=== PATIENT | female | born 1935 | race Caucasian/White ===

== ENCOUNTER 2018-10-29 13:37 | Emergency (ER) | payer MEDICARE, MEDICAID ==
[2018-10-29 14:04] LABS: #Basophils 0.1 thou/uL (0.0-0.2); #Eosinphils 0.6 thou/uL (0.0-0.7); #Lymphocytes 1.7 thou/uL (1.20-3.40); #Monocytes 0.8 thou/uL (0.11-0.59); #Neutrophils 6.6 thou/uL (1.40-6.50); %Basophils 0.8 % (0.0-1.0); %Eosinophils 6.5 % (0.0-10.0); %Lymphocytes 17.1 % (21.0-51.0); %Monocytes 8.6 % (0.0-10.0); Mean Corpuscular HGB CONC 32.7 g/dL (32.0-36.0); Mean Corpuscular Hemoglobin 32.5 pg (27.0-31.0); Mean Corpuscular Volume 99.3 fL (78.0-98.0); Platelet Count 271 thou/uL (130-400); Red Blood Cell (RBC) Count 4.01 mill/uL (4.20-5.40); White Blood Cell (WBC) Count 9.8 thou/uL (4.8-10.8)
--- NOTE | 2018-10-29 14:07 | RAD ---
CHEST 1 VIEW: Date: 10/29/18 HISTORY: Cough. Fever. COMPARISON: 10/21/16. FINDINGS: Atherosclerosis of aorta. Normal cardiac silhouette. Pulmonary vessels and hilum are normal. Costophr enic angles are clear. Hyperinflation, without consolidation or mass. No pneumothorax or osseous abno rmalities. IMPRESSION: No acute cardiopulmonary process. POS: [facility]
[2018-10-29 14:25] LABS: ALT (SGPT) 15 U/L (8-55); AST (SGOT) 20 U/L (5-34); Albumin 3.7 g/dL (3.4-4.8); Alkaline Phosphatase 113 U/L (40-150); Anion Gap 14 mmol/L (10-20); BUN (Urea Nitrogen) 12 mg/dL (9.8-20.1); Bilirubin, Total 0.2 mg/dL (0.2-1.2); Calc. Creatinine Clearance 0 mL/min (70-130); Calcium 9.1 mg/dL (7.8-10.44); Carbon Dioxide 27 mmol/L (23-31); Chloride 104 mmol/L (98-107); Estimated GFR-MDRD 61; Glucose 105 mg/dL (83-110); Potassium 4.5 mmol/L (3.5-5.1); Protein, Total 6.7 g/dL (6.0-8.3); Sodium 140 mmol/L (136-145)
--- NOTE | 2018-10-31 18:13 | EKG ---
Test Reason : Blood Pressure : / mmHG Vent. Rate : 084 BPM Atrial Rate : 084 BPM P-R Int : 152 ms QRS Dur : 082 ms QT Int : 364 ms P-R-T Axes : 047 113 071 degrees QTc Int : 430 ms Sinus rhythm with sinus arrhythmia with occasional Premature ventricular complexes Right axis deviation Pulmonary disease pattern Abnormal ECG Confirmed by TESSIE CULVER DO ([id number]), commercial production editor BEATRIZ ZAVALETA ([id number]) on 10/31/2018 6:12:48 PM Referred By: Confirmed By:TESSIE CULVER DO
== END 2018-10-29 17:22 | disposition home or self-care (01) ==
LOC: ERS 13:37
DX: J44.9 Chronic obstructive pulmonary disease, unspecified (principal); J20.9 Acute bronchitis, unspecified; I48.91 Unspecified atrial fibrillation; Z87.891 Personal history of nicotine dependence
CPT/HCPCS: 36415; 71045; 80053; 83605; 84484; 85025; 87040; 87804; 93005; 94640; J7620

== ENCOUNTER 2019-03-15 09:29 | Outpatient (CLI) | payer MEDICARE, MEDICAID ==
--- NOTE | 2019-03-15 10:17 | BD ---
EXAM: Bone densitometry using DEXA HISTORY: 83 yo female. Screening for postmenopausal osteoporosis FINDINGS: L1--bone mineral density 0.838 g/sq cm; T score -1.4 ; Z score 1.1 L2--bone mineral density 1.046 g/sq cm; T score 0.2 ; Z score 2.9 L3--bone mineral density 1.074 g/sq cm; T score -0.1 ; Z score 2.8 L4--bone mineral density 1.097 g/sq cm; T score 0.3 ; Z score 3.3 Total L1-L4--bone mineral density 1.018 g/sq cm; T score -0.3 ; Z score 2.6 Left femoral neck--bone mineral density0.555; T score -2.6 ; Z score -0.2 Total proximal left femur--bone mineral density 0.646; T score -2.4 ; Z score -0.2 IMPRESSION: Osteoporosis
== END 2019-03-15 09:30 | disposition home or self-care (01) ==
LOC: BICMAMMO 09:29
PROVIDERS: ATTEND Student in an Organized Health Care Education/Training Program
DX: Z13.820 Encounter for screening for osteoporosis (principal); J44.9 Chronic obstructive pulmonary disease, unspecified; M81.0 Age-related osteoporosis without current pathological fracture
CPT/HCPCS: 77080

== ENCOUNTER 2019-03-27 16:46 | Emergency (ER) | payer MEDICARE, MEDICAID ==
--- NOTE | 2019-03-27 17:27 | RAD ---
3 views left wrist. HISTORY: Trauma Left wrist pain. AP, lateral and oblique views left wrist obtained. No evidence of left wrist fractures, subluxations or bony lesion seen. IMPRESSION: Normal 3 views left wrist.
--- NOTE | 2019-03-27 17:29 | RAD ---
3 views right foot. Ramón history: Trauma with right foot pain. AP, lateral and oblique views right foot is obtained. No evidence of right foot fractures, subluxations or bony lesion seen. IMPRESSION: Normal 3 views right foot.
--- NOTE | 2019-03-27 17:30 | RAD ---
2 views right tibia and fibula. HISTORY: Trauma with right tibial and fibular pain. AP and lateral views right tibia and fibula demonstrates no evidence of fractures, subluxations or elias ny lesions. IMPRESSION: Normal 2 views right tibia and fibula.
--- NOTE | 2019-03-27 17:31 | RAD ---
Two views left tibia and fibula. HISTORY: Trauma with left leg pain. AP and lateral views left tibia and fibula is obtained. No evidence of acute fractures, subluxations or bony lesion seen. IMPRESSION: No evidence of left tibial or fibular fractures. Transcribed Date/Time: 03/27/2019 5:40 PM
== END 2019-03-27 19:23 | disposition home or self-care (01) ==
LOC: ERS 16:46
DX: S91.311A Laceration without foreign body, right foot, initial encounter (principal); S80.12XA Contusion of left lower leg, initial encounter; I48.91 Unspecified atrial fibrillation; J44.9 Chronic obstructive pulmonary disease, unspecified; Z79.899 Other long term (current) drug therapy; W05.0XXA Fall from non-moving wheelchair, initial encounter
CPT/HCPCS: 94760

== ENCOUNTER 2019-11-21 12:53 | Inpatient (IN) | payer MEDICARE, MEDICAID ==
[2019-11-21] MEDS ORDERED: Albuterol Sulfate 2.5 mg/3 ml Neb ONE (13:01)
[2019-11-21] MEDS ORDERED: methylPREDNISolone Sod Succ/PF 125 MG/2 ML VIAL ONE (13:15)
[2019-11-21] MEDS ORDERED: cefTRIAXone\\ROCEPHIN 2 GM VIAL ONE (13:15)
[2019-11-21] MEDS ORDERED: Magnesium 2 GM/50 ML BAG (IN WATER) ONE (13:15)
[2019-11-21] MEDS ORDERED: Azithromycin 500 MG VIAL ONE (13:15)
[2019-11-21] MEDS ORDERED: Sodium Chloride 0.9% 100 ML ONE (13:15)
[2019-11-21 13:19] LABS: Hemoglobin 13.3 g/dL (12.0-16.0); Mean Corpuscular HGB CONC 31.6 g/dL (32.0-36.0); Mean Corpuscular Hemoglobin 31.4 pg (27.0-31.0); Mean Corpuscular Volume 99.6 fL (78.0-98.0); Mean Platelet Volume 8.1 fL (7.4-10.4); Platelet Count 253 thou/uL (130-400); RBC Distribution Width 13.5 % (11.5-14.5); Red Blood Cell (RBC) Count 4.23 mill/uL (4.20-5.40); White Blood Cell (WBC) Count 22.9 thou/uL (4.8-10.8)
[2019-11-21] MEDS ORDERED: Ondansetron PF 4 MG/2 ML Vial ONE (13:26)
[2019-11-21 13:37] LABS: Band 34 % (5-11); Hypochromia SLIGHT = 6-15 cells (100X) (0-5/hpf); Lymphocytes 1 % (21-51); MDiff Complete? YES; Macrocytosis SLIGHT = 6-15 cells (100X) (0-5/hpf); Monocytes 4 % (0-10); Neutrophil 60 % (42-75); Platelet Morphology Comment Appears Adequate; Polychromasia SLIGHT = 2-3 cells (100X) (0-2/hpf); Reactive Lymphocytes 1 % (0-10)
[2019-11-21 13:41] LABS: ALT (SGPT) 27 U/L (8-55); AST (SGOT) 49 U/L (5-34); Alkaline Phosphatase 83 U/L (40-110); Anion Gap 16 mmol/L (10-20); BUN (Urea Nitrogen) 16 mg/dL (9.8-20.1); Bilirubin, Total 0.7 mg/dL (0.2-1.2); Calc. Creatinine Clearance 0 mL/min (70-130); Calcium 8.8 mg/dL (7.8-10.44); Carbon Dioxide 28 mmol/L (23-31); Chloride 95 mmol/L (98-107); Estimated GFR-MDRD 74; Globulin 2.5 g/dL (2.4-3.5); Glucose 119 mg/dL (83-110); Potassium 4.1 mmol/L (3.5-5.1); Protein, Total 6.5 g/dL (6.0-8.3); Sodium 135 mmol/L (136-145)
--- NOTE | 2019-11-21 13:45 | RAD ---
FRONTAL RADIOGRAPH CHEST: 11/21/2019 HISTORY: Worsening shortness of breath with fever. COMPARISON: 10/29/2018 FINDINGS: There is increased linear interstitial density with pulmonary hyperinflation, suggesting COPD. There is asymmetric new focal opacity in the left base with partial obscuration of the left hemidiaphragm a nd blunting of the left costophrenic angle. There is atherosclerotic calcification of the aortic arch . IMPRESSION: Interstitial opacity with pulmonary hyperinflation, consistent with chronic obstructive pulmonary dis ease. Superimposed new focal opacity in the left base suggests infectious pneumonitis or aspiration. Recomm end short-term follow-up imaging of the chest following treatment to document resolution. POS: [facility]
[2019-11-21 13:48] LABS: Actual Bicarbonate (HCO3a) 28.4 mEq/L (22-28); Analyzer IN Cardio ER; Base Excess (BEa) 2.2 mEq/L (-2.0 to +3.0); CO2 Tension 50.8 mmHg (35.0-45.0); Calcium, Ionized 1.12 mmol/L (1.12-1.30); Carboxyhemoglobin (COHb) 0.6 gm% (0.0-3.0); Hemoglobin (Hb) 12.7 g/dL (12.0-16.0); O2 Tension (PaO2) 78.6 mmHg (> 60.0); Potassium - ABG Lab 3.49 mmol/L (3.70-5.30); pH, Arterial 7.37 (7.35-7.45)
[2019-11-21 14:02] LABS: Puncture Site RRA
[2019-11-21] MEDS ORDERED: Ondansetron ODT 4 MG TAB PO PRN (15:06)
[2019-11-21] MEDS ORDERED: Senokot S 8.6-50 MG TAB PO PRN (15:06)
--- NOTE | 2019-11-21 15:34 | PDOC.FPRHP ---
"- History of Present Illness Chief Complaint: Acute onset of shortness of breath History of Present Illness: Ms. Griffni is an 84yoF who presents to the ED after an acute onset of shortness of breath that began around 2:30am (12 hours prior to arrival). She states this woke her from sleep. She states she has also had associated nausea, headache, and rib pain. She has chronic cough that she states is stable. She has a history of COPD and is on 2L O2 via NC at home at baseline. On arrival to the ED her lips were blue and she was not breathing well independently. She responded well to BiPap therapy and duoneb. She states that her most concerning symptom is her shortness of breath. ED Course: Zofran 8mg, NS 1L, Azithromycin, Ceftriaxone, Methylprednisolone, Albuterol/ Ipratropium bromide, Magnesium sulfate - Allergies/Adverse Reactions Allergies Allergy/AdvReac Type Severity Reaction Status Date / Time Penicillins Allergy Verified 07/04/16 12:41 ranitidine HCl [From Zantac] Allergy Verified 07/04/16 12:41 Sulfa (Sulfonamide Allergy Verified 07/04/16 12:41 Antibiotics) - Home Medications Medication Instructions Recorded Confirmed Type Albuterol Sulfate [Proair HFA] 1 puff INH Q4HR PRN 05/27/16 11/21/19 History Budesonide-Formoterol [Symbicort 1 puff BID 05/27/16 11/21/19 History 160-4.5] Ipratropium Sullivan [Atrovent] 2.5 ml NEB TID 05/27/16 11/21/19 History Furosemide [Lasix] 20 mg PO DAILY #0 tab 05/29/16 11/21/19 Rx traMADol HCl [Ultram] 50 mg PO QID PRN #0 tab 05/29/16 11/21/19 Rx Dorzolamide HCl/Timolol Maleat 1 drop L EYE DAILY 07/04/16 11/21/19 History [Cosopt Ophth Solution] Propranolol [Inderal] 10 mg PO QID 07/04/16 11/21/19 History Propylene Glycol [Lubricant Eye 10 ml EA EYE PRN PRN 07/04/16 11/21/19 History Drops] Timolol Maleate [Timoptic 0.5% 1 drop R EYE DAILY 07/04/16 11/21/19 History Ophth Soln] Pantoprazole [Protonix] 40 mg PO BID 07/05/16 11/21/19 History Clorazepate Dipotassium 1 tab PO DAILY 11/21/19 11/21/19 History guaiFENesin [Mucinex] 600 mg PO 11/21/19 History - History PMHx: COPD Diastolic heart failure H/o atrial fibrillation or other arrhythmia PSHx: Cholecystecomy Appendectomy Tonsillectomy Tubal ligation Back surgery R cataract surgery Bilateral carpal tunnel FHx: Non-contributory Social: Former alcohol abuse, no longer drinks Former tobacco abuse, quit 2003 (55 pack year history) Denies illicit drug use - Review of Systems General: denies: fever/chills, weight/appetite/sleep changes, night sweats Eyes: reports: vision changes. denies: eye pain ENT: denies: nasal congestion, rhinorrhea Respiratory: reports: cough, congestion, shortness of breath. denies: exercise intolerance Cardiovascular: reports: chest pain, edema. denies: palpitation, paroxysmal nocturnal dyspnea, orthopnea Gastrointestinal: reports: nausea. denies: vomiting, diarrhea, constipation, abdominal pain Genitourinary: reports: incontinence (chronic). denies: dysuria, polyuria Skin: denies: rashes, lesions Musculoskeletal: reports: tenderness (calf tenderness due to chronic swelling). denies: pain, stiffness Neurological: denies: numbness, syncope, seizure Psychological: denies: anxiety, depression - Vital signs Weight 52kg | BP: 128/61, Pulse: 108, Resp: 26, Pain: 5, O2 sat: 96 on (Face mask), Time: 11/21/2019 14:25. - Physical Exam Constitutional: NAD, awake, alert and oriented HEENT: normocephalic and atraumatic, PERRLA, EOMI, conjunctiva clear, grossly normal vision, grossly normal hearing, MMM, oropharynx clear Neck: supple, trachea midline Chest: no-tender to palpation Heart: RRR, normal S1/S2, no murmurs/rubs/gallops -Heart: 2+ edema to the knee bilaterally, legs in compression stockings. Lungs: no respiratory distress, no rales/rhonchi, no wheezing -Lungs: Tight breath sounds bilaterally, poor air movement. Abdomen: soft, non-tender Musculoskeletal: normal structure, normal tone Neurological: no focal deficit, CN II-XII intact Skin: no rash/lesions, good turgor Heme/Lymphatic: no unusual bruising or bleeding, no purpura Psychiatric: normal mood and affect, good judgment and insight, intact recent and remote memory FMR H&P: Results - Labs Result Diagrams: 11/21/19 13:06 11/21/19 13:07 Lab results: WBC 22.9 thou/uL (4.8-10.8) H 11/21/19 13:06 Hgb 13.3 g/dL (12.0-16.0) 11/21/19 13:06 Hct 42.1 % (36.0-47.0) 11/21/19 13:06 MCV 99.6 fL (78.0-98.0) H 11/21/19 13:06 Plt Count 253 thou/uL (130-400) 11/21/19 13:06 Band Neuts % (Manual) 34 % (5-11) H 11/21/19 13:06 ABG pH 7.37 (7.35-7.45) 11/21/19 13:30 ABG pCO2 50.8 mmHg (35.0-45.0) H 11/21/19 13:30 ABG pO2 78.6 mmHg (> 60.0) H 11/21/19 13:30 Sodium 135 mmol/L (136-145) L 11/21/19 13:07 Potassium 4.1 mmol/L (3.5-5.1) 11/21/19 13:07 Chloride 95 mmol/L (98-107) L 11/21/19 13:07 Carbon Dioxide 28 mmol/L (23-31) 11/21/19 13:07 BUN 16 mg/dL (9.8-20.1) 11/21/19 13:07 Creatinine 0.75 mg/dL (0.6-1.1) 11/21/19 13:07 Glucose 119 mg/dL (83-110) H 11/21/19 13:07 Lactic Acid 1.3 mmol/L (0.5-2.2) 11/21/19 13:08 Calcium 8.8 mg/dL (7.8-10.44) 11/21/19 13:07 Total Bilirubin 0.7 mg/dL (0.2-1.2) 11/21/19 13:07 AST 49 U/L (5-34) H 11/21/19 13:07 ALT 27 U/L (8-55) 11/21/19 13:07 Alkaline Phosphatase 83 U/L (40-110) 11/21/19 13:07 B-Natriuretic Peptide 136.7 pg/mL (0-100) H 11/21/19 13:07 Serum Total Protein 6.5 g/dL (6.0-8.3) 11/21/19 13:07 Albumin 4.0 g/dL (3.4-4.8) 11/21/19 13:07 - EKG Interpretation EKG: Sinus tachycardia - Radiology Interpretation Chest x-ray Status: report reviewed by me (COPD. Superimposed new focal opacity in the left base - infectious pneumonitis or aspiration.) FMR H&P: A/P - Problem List (1) Hypoxia Current Visit: No Status: Acute Code(s): R09.02 - HYPOXEMIA (2) Pneumonia Current Visit: No Status: Acute Code(s): J18.9 - PNEUMONIA, UNSPECIFIED ORGANISM Qualifiers: Laterality: left Lung location: lower lobe of lung (3) Sepsis Current Visit: No Status: Acute Code(s): A41.9 - SEPSIS, UNSPECIFIED ORGANISM (4) Anxiety Current Visit: No Status: Chronic Code(s): F41.9 - ANXIETY DISORDER, UNSPECIFIED (5) Atrial fibrillation Current Visit: No Status: Chronic Code(s): I48.91 - UNSPECIFIED ATRIAL FIBRILLATION Qualifiers: Atrial fibrillation type: paroxysmal Qualified Code(s): I48.0 - Paroxysmal atrial fibrillation (6) COPD (chronic obstructive pulmonary disease) Current Visit: No Status: Chronic - Plan Sepsis 2/2 COPD vs community acquired pneumonia - Will continue Azithromycin and Rocephin - S/p 1L NS - Will monitor fluid status in setting of history of diastolic heart failure Acute hypoxic respiratory failure 2/2 COPD vs CAP - O2 70% on 2L O2 - Improved with BiPap. - Currently on O2 via face mask. Will continue. BiPap as needed. - On Azithromycin and Rocephin, will add prednisone daily. H/o Afib - On Propranolol at home. NSR on arrival. - Will continue home medications. H/o diastolic heart failure - No recent ECHO for review. - On 20mg Lasix daily COPD - On symbicort and ventolin at home. Anxiety - on clorazepate dipotassium at home (benzo) Disposition/LOS: Dispo: Stable VTE: Lovenox Code: DNAR PCP: JUANA OCONNOR H&P: Upper Level - Plan Date/Time: 11/21/19 1530 I, Edgar Bazan DO, have evaluated this patient and agree with findings/plan as outlined by environmental health and safety intern resident. Pertinent changes/additions are listed here. Subjective: This is an 84 yo female with a pmh of atrial fibrillation, COPD who presest to the ED with a cc of SOB. She states these symptoms started at 0230 last night and have worsened since then. The SOB is associated with chills, cough. She denies chest pain, lightheadedness, or pre-syncope. The ER doctor reports on admission to the ER, her O2 sats were in the 60s, she had perioral cyanosis, and she required BiPap and duonebs. She also received solumedrol and magnesium, all of which helped improve her symptoms. Objective: Vitals: BP 144/66, HR 104, Respirations 16, SpO2: 96% on 4L NRB General: NAD, wearing NRB HEENT: MMM, AT/NC Cardio: Tachycardic, irregularly irregular Resp: Tight lungs, diffuse wheezing A/P Acute hypoxic respiratory failure -Pt required bipap in ER, will admit to IMCU overnight -Duonebs, prednisone -Respiratory support -ABG appears near baseline, pt talking in complete sentences COPD exacerbation 2/2 CAP -Azithromycin/ Rocephin -As above Sepsis 2/2 above -As above See environmental health and safety intern not for chronic condition management Addendum - Attending - Attending Attestation Date/Time: 11/21/19 1650 I personally evaluated the patient and discussed the management with Dr. Day/ Beni. I agree with the History, Examination, Assessment and Plan documented above with any addition or exceptions noted below. patient is 84-year-old female with long-standing history of COPD on chronic oxygen supplementation who presents with sudden onset increasing shortness of breath not improved by her home medications. Patient presented via EMS who reported she was initially cyanotic. Upon arrival to the emergency department, patient was given magnesium, nebulizer treatments, steroids, and placed on BiPAP with improvement in her symptoms. Patient denies any productive cough during this period or fevers but does report progressive symptoms since the overnight hours. on exam patient is tachycardic with vital signs otherwise stable. Her lung findings are consistent with progressed COPD with diminished air entry bilaterally and prolonged expiratory phase. She is noted to have some supraclavicular retractions associated with advanced COPD. The rest of her exam is benign. She does have elevated white blood cell count with left shift, the rest of her lab work is otherwise unremarkable. Her ABG is overall appropriate for disease process. patients x-ray does show findings consistent with COPD and concerning for infectious process. Patient will be admitted for acute on chronic hypoxic respiratory failure as well as sepsis likely secondary to COPD exacerbation and possible pneumonia. Placed patient on community acquired pneumonia antibiotics and provide symptomatic treatment and steroids for her COPD flare. She is admitted to the IMCU currently in the chance she decompensates and needs further BiPAP therapy. Anticipate several days hospitalization needed."
[2019-11-21] MEDS ORDERED: Albuterol Sulfate 2.5 mg/3 ml Neb NEB PRN (15:44)
[2019-11-21 16:17] VITALS: BMI 19.0
[2019-11-21 16:50] LABS: Troponin I 0.032 ng/mL (< 0.028)
[2019-11-21] MEDS ORDERED: traMADol HCl 50 MG TAB PO PRN (17:21)
[2019-11-21] MEDS: Acetaminophen 325 MG TAB PO PRN (17:30)
[2019-11-21] MEDS ORDERED: Polyethylene Glycol OPTH DROP 15 ML BOT EA EYE PRN (17:44)
[2019-11-21 20:03] LABS: Troponin I 0.028 ng/mL (< 0.028)
[2019-11-21] MEDS: guaiFENesin ER 600 MG TAB PO SCH (21:11)
[2019-11-21] MEDS: Propranolol 10 MG TAB PO SCH (21:11)
[2019-11-22 05:42] LABS: Band 18 % (5-11); Hemoglobin 10.8 g/dL (12.0-16.0); Lymphocytes 5 % (21-51); MDiff Complete? YES; Mean Corpuscular HGB CONC 31.5 g/dL (32.0-36.0); Mean Corpuscular Hemoglobin 31.1 pg (27.0-31.0); Mean Corpuscular Volume 98.8 fL (78.0-98.0); Mean Platelet Volume 8.6 fL (7.4-10.4); Monocytes 2 % (0-10); Neutrophil 75 % (42-75); Platelet Count 186 thou/uL (130-400); RBC Distribution Width 13.3 % (11.5-14.5); Red Blood Cell (RBC) Count 3.47 mill/uL (4.20-5.40); White Blood Cell (WBC) Count 27.3 thou/uL (4.8-10.8)
[2019-11-22 05:48] LABS: Anion Gap 12 mmol/L (10-20); BUN (Urea Nitrogen) 17 mg/dL (9.8-20.1); Calc. Creatinine Clearance 45 mL/min (70-130); Calcium 8.4 mg/dL (7.8-10.44); Carbon Dioxide 29 mmol/L (23-31); Chloride 98 mmol/L (98-107); Estimated GFR-MDRD 69; Glucose 127 mg/dL (83-110); Sodium 135 mmol/L (136-145)
--- NOTE | 2019-11-22 06:11 | PDOC.FM ---
- Subjective Subjective: NAEO. Patient remained stable on NC overnight but requiring more than baseline @ 3L on exam. Afebrile. Reports improvement in her breathing since admission. No N/V or productive cough. - Objective MAR Reviewed: Yes Vital Signs & Weight: Vital Signs (12 hours) Temp Pulse Resp Pulse Ox 11/22/19 03:37 97.3 F L 11/22/19 01:59 75 16 100 11/22/19 00:51 99 11/21/19 23:24 98.6 F 11/21/19 21:58 80 16 100 11/21/19 20:34 98.6 F 11/21/19 19:08 96 16 95 Weight Weight 53.524 kg Most Recent Monitor Data Heart Rate from ECG 89 NIBP 113/55 NIBP BP-Mean 74 Respiration from ECG 23 SpO2 100 I&O: 11/20/19 11/21/19 11/22/19 06:59 06:59 06:59 Output Total 200 Balance -200 Result Diagrams: 11/22/19 04:01 11/22/19 04:01 Phys Exam - Physical Examination Constitutional: NAD HEENT: moist MMs Neck: supple Respiratory: no wheezing, no rales, no rhonchi decreased breath sounds on expiration throughout Cardiovascular: no significant murmur tachycardic with regular rhythm Gastrointestinal: soft, non-tender, no distention, positive bowel sounds Musculoskeletal: no edema Neurological: non-focal, moves all 4 limbs Psychiatric: normal affect, A&O x 3 Skin: no rash, normal turgor Dx/Plan (1) Hypoxia Code(s): R09.02 - HYPOXEMIA Status: Acute (2) Pneumonia Code(s): J18.9 - PNEUMONIA, UNSPECIFIED ORGANISM Status: Acute Qualifiers: Laterality: left Lung location: lower lobe of lung (3) Sepsis Code(s): A41.9 - SEPSIS, UNSPECIFIED ORGANISM Status: Resolved (4) Anxiety Code(s): F41.9 - ANXIETY DISORDER, UNSPECIFIED Status: Chronic (5) Atrial fibrillation Code(s): I48.91 - UNSPECIFIED ATRIAL FIBRILLATION Status: Chronic Qualifiers: Atrial fibrillation type: paroxysmal Qualified Code(s): I48.0 - Paroxysmal atrial fibrillation (6) COPD (chronic obstructive pulmonary disease) Status: Chronic (7) HLD (hyperlipidemia) Code(s): E78.5 - HYPERLIPIDEMIA, UNSPECIFIED Status: Chronic (8) History of back surgery Code(s): Z98.89 - OTHER SPECIFIED POSTPROCEDURAL STATES * DO NOT USE * Status : Chronic (9) Hypertension Code(s): I10 - ESSENTIAL (PRIMARY) HYPERTENSION Status: Chronic (10) Presbycusis Code(s): H91.10 - PRESBYCUSIS, UNSPECIFIED EAR Status: Chronic Qualifiers: Laterality: bilateral Qualified Code(s): H91.13 - Presbycusis, bilateral - Plan Plan: 84YOF with a PMH significant for COPD on 2L at home, HFpEF and anxiety who presented to the ED for worsening SOB at home & was found to septic 2/2 a COPD exacerbation vs. CAP. Sepsis 2/2 community acquired pneumonia, improving - No longer meets sepsis criteria & is maintaining sats on 3L NC. - Will continue Azithromycin and Rocephin for suspected CAP. - Will continue to trend procal as elevated at 2.39 this AM. - Bld Cxs pending. Acute hypoxic respiratory failure 2/2 COPD vs CAP, improving - Maintaining adequate sats on 3L O2 this AM w/o any signs of distress but did desat some while talking on exam. - Will continue Azithromycin and rocephin. Continue PO steroids. - Continue RABIA & PRN Duonebs & will wean O2 as tolerated. H/o Afib - Aware, NSR on arrival. - Will continue home medications. H/o diastolic heart failure - No recent ECHO for review. - Continue home 20mg Lasix daily COPD, on 2L O2 via NC at home - Aware, appears to be in acute exacerbation 2/2 CAP - See plan for problem #1. HTN - Home meds. Anxiety - Continue home med, clorazepate dipotassium. Disposition/LOS: Dispo: Consider transition out of IMCU later today if remains stable on NC & pending pulmonology recs. VTE: Lovenox Code: THANIAR PCP: JUANA Rose Addendum - Attending - Attending Attestation Date/Time: 11/22/19 1042 I personally evaluated the patient and discussed the management with Dr. Cano. I agree with the History, Examination, Assessment and Plan documented above with any addition or exceptions noted below. Patient here with Sepsis 2/2 PNA and acute on chronic hypoxic resp failure 2/2 COPD exac and PNA. She did not require further BIpap, stable for transfer to medical floor. Pulm on board. Continue abx, steroids, neb treatments, O2 therapy as needed.
[2019-11-22] MEDS ORDERED: Furosemide 20 MG TAB PO SCH (09:00)
[2019-11-22] MEDS ORDERED: FLU VACC TS2019-20(65YR UP)/PF 180 MCG/0.5 ML SYRINGE IM ONE (09:00)
[2019-11-22] MEDS ORDERED: Prevnar 13-Val Conj/PF 0.5 ML SYRINGE IM ONE (09:00)
--- NOTE | 2019-11-22 09:59 | CON ---
DATE OF CONSULTATION: 11/22/2019 CONSULTING PHYSICIAN: [facility]. REASON FOR CONSULTATION: COPD exacerbation. HISTORY OF PRESENT ILLNESS: Ms. Griffin is a pleasant 84-year-old who was admitted to the hospital yesterday with increasing shortness of breath. She says she has improved and is now back to baseline. She was on BiPAP briefly, but that has been stopped. She is anxious to go home because she says she needs to be there to take care of her who has bipolar disorder. PAST MEDICAL HISTORY: 1. Chronic obstructive pulmonary disease. 2. Diastolic congestive heart failure. 3. Paroxysmal atrial fibrillation. PAST SURGICAL HISTORY: 1. Cholecystectomy. 2. Appendectomy. 3. Tonsillectomy and adenoidectomy. 4. Tubal ligation. 5. Back surgery. 6. Right cataract surgery. 7. Bilateral carpal tunnel release. MEDICATIONS: Prior to admission: 1. ProAir. 2. Symbicort. 3. Atrovent. 4. Lasix. 5. Ultram. 6. Cosopt ophthalmic solution. 7. Propranolol. 8. Polyethylene glycol drops. 9. Timolol eyedrops. 10. Protonix. 11. Guaifenesin. SOCIAL HISTORY: Quit smoking back in 2003 after a 55 pack-year history. Does not consume alcohol. Lives at home with her . REVIEW OF SYSTEMS: Twelve-point review of systems is otherwise negative. PHYSICAL EXAMINATION: VITAL SIGNS: Temperature 97.8, pulse 88, blood pressure 99/49, O2 saturation 100% on 4 L. GENERAL: She is awake, alert, in no distress. HEENT: Unremarkable. NECK: No adenopathy or JVD. LUNGS: Clear without wheezing or rhonchi. CARDIAC: S1, S2. Regular. ABDOMEN: Soft. EXTREMITIES: No clubbing, cyanosis, or edema. NEUROLOGIC: Grossly intact throughout. LABORATORY DATA: White blood cell count 27.3, hematocrit 34.3, platelet count 186. PH of 7.37, pCO2 of 51, and pO2 of 78. Sodium 135, potassium 4, chloride 98, CO2 of 29, BUN 17, creatinine 0.8, glucose 127. Chest x-ray shows hyperinflation without evidence of mass, effusion, or infiltrate. ASSESSMENT: Chronic obstructive pulmonary disease exacerbation. She has responded appropriately to the BiPAP, antibiotics, nebulization treatments, and steroids. RECOMMENDATION: She is stable for transfer the floor and probably ready for discharge to home by tomorrow. No further recommendations at this time. Job ID: [id number]
[2019-11-22] MEDS: predniSONE 20 MG TAB PO SCH (11:08)
[2019-11-22] MEDS: Propranolol 10 MG TAB PO SCH ×4 (11:08→20:25)
[2019-11-22] MEDS: Enoxaparin Sodium 40 MG/0.4 ML SYRINGE SC SCH ×2 (11:08→11:12)
[2019-11-22] MEDS: guaiFENesin ER 600 MG TAB PO SCH ×2 (11:08→20:25)
[2019-11-22] MEDS: DorzolamidE/Timolol 2%/0.5% Ophth Soln 10 ml Bottle L EYE SCH (11:09)
[2019-11-22] MEDS: Timolol 0.5% Ophth Soln 5 ml Bottle R EYE SCH (11:10)
[2019-11-22] MEDS ORDERED: cefTRIAXone\\ROCEPHIN 1 GM in Sodium Chloride 0.9% 100 ML IVPB SCH (13:00)
[2019-11-22] MEDS ORDERED: Azithromycin 500 MG in Sodium Chloride 0.9% 250 ML 250 ML IVPB SCH (14:00)
[2019-11-22] MEDS ORDERED: cefTRIAXone\\ROCEPHIN 1 GM VIAL ONE (14:05)
[2019-11-23 05:31] LABS: Anion Gap 7 mmol/L (10-20); BUN (Urea Nitrogen) 20 mg/dL (9.8-20.1); Calc. Creatinine Clearance 45 mL/min (70-130); Calcium 8.3 mg/dL (7.8-10.44); Carbon Dioxide 35 mmol/L (23-31); Chloride 99 mmol/L (98-107); Estimated GFR-MDRD 70; Glucose 124 mg/dL (83-110); Sodium 137 mmol/L (136-145)
[2019-11-23 06:02] LABS: #Lymphocytes 0.9 thou/uL (1.20-3.40); #Monocytes 0.9 thou/uL (0.11-0.59); #Neutrophils 18.8 thou/uL (1.40-6.50); %Eosinophils 0.1 % (0.0-10.0); %Lymphocytes 4.4 % (21.0-51.0); %Monocytes 4.2 % (0.0-10.0); %Neutrophils 91.4 % (42.0-75.0); Hemoglobin 10.3 g/dL (12.0-16.0); Mean Corpuscular HGB CONC 29.1 g/dL (32.0-36.0); Mean Corpuscular Hemoglobin 29.2 pg (27.0-31.0); Mean Platelet Volume 8.7 fL (7.4-10.4); Platelet Count 180 thou/uL (130-400); RBC Distribution Width 13.4 % (11.5-14.5); RBC Morphology Normal; Red Blood Cell (RBC) Count 3.51 mill/uL (4.20-5.40); White Blood Cell (WBC) Count 20.5 thou/uL (4.8-10.8)
[2019-11-23 07:43] VITALS: TEMP 98.2
--- NOTE | 2019-11-23 07:54 | PDOC.FM ---
- Subjective Subjective: NAEO. Patient was able to maintain sats on NC overnight. Has been on 3L since moving to the floor but has been satting up to 100% on this. Otherwise, no fever /chills, N/V/D or difficulty breathing. - Objective MAR Reviewed: Yes Vital Signs & Weight: Vital Signs (12 hours) Temp Pulse Resp BP Pulse Ox 11/23/19 07:39 98.2 F 82 22 H 114/76 100 11/23/19 06:32 86 16 100 11/23/19 04:00 98.3 F 81 18 107/65 100 11/23/19 01:29 82 16 100 11/23/19 00:00 98.2 F 79 19 107/58 L 100 11/22/19 20:15 90 16 95 11/22/19 20:00 98.3 F 90 18 127/57 L 95 Weight Weight 53.524 kg Most Recent Monitor Data Heart Rate from ECG 90 NIBP 106/59 NIBP BP-Mean 74 Respiration from ECG 26 SpO2 98 I&O: 11/22/19 11/23/19 11/24/19 06:59 06:59 06:59 Intake Total 500 Output Total 200 200 Balance -200 300 Result Diagrams: 11/23/19 04:51 11/23/19 04:51 Phys Exam - Physical Examination Constitutional: NAD HEENT: moist MMs decreased hearing B/L but chronic Neck: supple Respiratory: no rales, no rhonchi, wheezing present trace inspiratory wheezing in bases w/ crackles in LLL; improved expiratory breath sounds compared to yesterday; desats while talking Cardiovascular: RRR, no significant murmur Gastrointestinal: positive bowel sounds Neurological: non-focal, moves all 4 limbs Psychiatric: normal affect, A&O x 3 Skin: no rash, normal turgor Dx/Plan (1) Hypoxia Code(s): R09.02 - HYPOXEMIA Status: Resolved (2) Pneumonia Code(s): J18.9 - PNEUMONIA, UNSPECIFIED ORGANISM Status: Acute Qualifiers: Laterality: left Lung location: lower lobe of lung (3) Sepsis Code(s): A41.9 - SEPSIS, UNSPECIFIED ORGANISM Status: Resolved (4) Anxiety Code(s): F41.9 - ANXIETY DISORDER, UNSPECIFIED Status: Chronic (5) Atrial fibrillation Code(s): I48.91 - UNSPECIFIED ATRIAL FIBRILLATION Status: Chronic Qualifiers: Atrial fibrillation type: paroxysmal Qualified Code(s): I48.0 - Paroxysmal atrial fibrillation (6) COPD (chronic obstructive pulmonary disease) Status: Chronic (7) HLD (hyperlipidemia) Code(s): E78.5 - HYPERLIPIDEMIA, UNSPECIFIED Status: Chronic (8) History of back surgery Code(s): Z98.89 - OTHER SPECIFIED POSTPROCEDURAL STATES * DO NOT USE * Status : Chronic (9) Hypertension Code(s): I10 - ESSENTIAL (PRIMARY) HYPERTENSION Status: Chronic (10) Presbycusis Code(s): H91.10 - PRESBYCUSIS, UNSPECIFIED EAR Status: Chronic Qualifiers: Laterality: bilateral Qualified Code(s): H91.13 - Presbycusis, bilateral - Plan Plan: 84YOF with a PMH significant for COPD on 2L at home, HFpEF and anxiety who presented to the ED for worsening SOB at home & was found to septic 2/2 a COPD exacerbation vs. CAP. Sepsis 2/2 community acquired pneumonia, improving - No longer meets sepsis criteria & is maintaining sats on 3L NC. - Will continue Azithromycin and transition to PO abx with omnicef for CAP for 7 day course per Pulm recs. - Will procal from 2.39->2.37 this AM. - Bld Cxs pending but NGTD. Acute hypoxic respiratory failure 2/2 COPD vs CAP, improving - Maintaining adequate sats on 3L O2 this AM w/o any signs of distress. Will continue to wean to baseline O2 requirements to maintain sats between 88-92%. - Will continue abx & PO steroids. - Continue RABIA & PRN Duonebs. Macrocytic Anemia - Hgb of 12-10 since admission with increased MCV. No workup noted on chart review. Needs outpatient workup. - Will continue to monitor. H/o Afib - NSR on arrival. - Will continue home medications. H/o diastolic heart failure - No recent ECHO for review. - Continue home 20mg Lasix daily COPD, on 2L O2 via NC at home - Aware, appears to be in acute exacerbation 2/2 CAP - See plan for problem #1. HTN - Home meds. Anxiety - Continue home med, clorazepate dipotassium. Disposition/LOS: Dispo: Likely discharge home later today pending patient is able to maintain sats on baseline 2L on PO abx with close outpatient follow-up. VTE: Lovenox Code: DNAR PCP: JUANA Barron - Attending - Attending Attestation Date/Time: 11/23/192031 I personally evaluated the patient and discussed the management with Dr. Cano at 0950 am. I agree with the History, Examination, Assessment and Plan documented above with any addition or exceptions noted below. CAP- d/c home on azithromycin and omnicef COPD exac secondary to CAP- home with nebulizer and steroid taper over 2 weeks Chronic hypoxic resp failure- back to baseline 2L O2 via NC. Stable for d/c home.
[2019-11-23] MEDS: guaiFENesin ER 600 MG TAB PO SCH (09:06)
[2019-11-23] MEDS: Timolol 0.5% Ophth Soln 5 ml Bottle R EYE SCH (09:06)
[2019-11-23] MEDS: predniSONE 20 MG TAB PO SCH (09:06)
[2019-11-23] MEDS: DorzolamidE/Timolol 2%/0.5% Ophth Soln 10 ml Bottle L EYE SCH (09:12)
[2019-11-23] MEDS: Enoxaparin Sodium 40 MG/0.4 ML SYRINGE SC SCH (09:15)
[2019-11-23 09:22] VITALS: BP 115/64
--- NOTE | 2019-11-23 09:44 | PRG ---
DATE OF SERVICE: 11/23/2019 SUBJECTIVE: She feels well and wants to go home today. She says she has home oxygen set up at the house. OBJECTIVE: VITAL SIGNS: Her O2 saturation is 100% on 2 L, temperature is 98.2, pulse 82, blood pressure 114/76. GENERAL: She appears in no distress. HEENT: Unremarkable. NECK: No adenopathy or JVD. LUNGS: Clear. CARDIAC: S1, S2. Regular. ABDOMEN: Soft. EXTREMITIES: No edema. LABORATORY DATA: White blood cell count 20, hematocrit 35, and platelet count 180. Sodium 137, potassium 4, BUN 20, creatinine 0.7, glucose 124. ASSESSMENT: Chronic obstructive pulmonary disease with exacerbation. PLAN: She is medically stable for discharge. She should complete about a week of antibiotics and have her steroids tapered over a couple of weeks. Continue inhalers and nebulization treatments at home. Job ID: [id number]
[2019-11-23] MEDS ORDERED: Cefdinir 300 MG CAP PO SCH ×3 (10:17→21:00)
[2019-11-23] MEDS: Propranolol 10 MG TAB PO SCH (10:54)
[2019-11-23] MEDS: Acetaminophen 325 MG TAB PO PRN (12:19)
== END 2019-11-23 12:53 | disposition home or self-care (01) | DRG 871 ==
LOC: ERS 12:53 → IMCU/EMU 15:51 → T4-A 11-22 18:10
PROVIDERS: ADMIT Student in an Organized Health Care Education/Training Program; ATTEND Student in an Organized Health Care Education/Training Program
PROC: 5A09457 Assistance with Respiratory Ventilation, 24-96 Consecutive Hours, Continuous Positive Airway Pressure (ICD-10-PCS; principal; 2019-11-21)
DX: A41.9 Sepsis, unspecified organism (principal); J18.9 Pneumonia, unspecified organism; J96.21 Acute and chronic respiratory failure with hypoxia; I50.32 Chronic diastolic (congestive) heart failure; Z66 Do not resuscitate; J43.9 Emphysema, unspecified; I11.0 Hypertensive heart disease with heart failure; F41.9 Anxiety disorder, unspecified; I48.0 Paroxysmal atrial fibrillation; Z88.0 Allergy status to penicillin; Z88.2 Allergy status to sulfonamides; Z88.8 Allergy status to other drugs, medicaments and biological substances; Z79.51 Long term (current) use of inhaled steroids; Z79.899 Other long term (current) drug therapy; Z90.49 Acquired absence of other specified parts of digestive tract; Z98.51 Tubal ligation status; Z87.891 Personal history of nicotine dependence; Z79.01 Long term (current) use of anticoagulants; H91.13 Presbycusis, bilateral; D53.9 Nutritional anemia, unspecified; Z99.81 Dependence on supplemental oxygen; E78.5 Hyperlipidemia, unspecified
CPT/HCPCS: 36415; 71045; 80048; 80053; 82805; 83605; 83880; 84145; 84484; 85025; 87040; 87804; 93005; 94640; 94644; 94660; 96361; 96365; 96375; J0456; J0696; J1650; J2405; J2930; J3475; J3490; J7050; J7512; J7611; J7620